=== PATIENT | male | born 1980 | race Asian ===

== ENCOUNTER 2018-10-25 19:32 | Emergency (ER) | payer MEDICAID ==
[~2018-10-25] VITALS: Ht 167.6 cm; Wt 89.8 kg
[2018-10-25 20:12] VITALS: Ht 167.6 cm; Wt 89.8 kg
[2018-10-26 00:09] VITALS: BP 141/105
== END 2018-10-26 00:09 | disposition home or self-care (01) ==
LOC: ED 19:32
DX: S92.002A Unspecified fracture of left calcaneus, initial encounter for closed fracture (principal); M10.9 Gout, unspecified; I10 Essential (primary) hypertension; W10.9XXA Fall (on) (from) unspecified stairs and steps, initial encounter; Y93.39 Activity, other involving climbing, rappelling and jumping off; Y92.89 Other specified places as the place of occurrence of the external cause; Y99.8 Other external cause status
CPT/HCPCS: J1885